=== PATIENT | female | born 1955 | race Caucasian/White ===

== ENCOUNTER 2019-03-29 09:18 | Emergency (ER) | payer SELFPAY ==
[~2019-03-29] VITALS: Ht 167.7 cm; Wt 65.9 kg
--- NOTE | 2019-03-29 09:35 | ED General ---
General Stated Complaint: LT KNEE INJ History of Present Illness Date Seen by Provider: Mar 29, 2019 Time Seen by Provider: 09:31 Initial Comments Patient is a 63-year-old female who comes to the emergency department today after a knee injury. Patient states she fell last evening landing straight on the front of her left knee. Since then, she has been able to bear weight but has had worsening pain and swelling in that area. No other injuries. No other complaints today. Allergies and Home Medications Allergies Coded Allergies: ibuprofen (Verified Allergy, Unknown, hives, 03/29/19) hives Patient Home Medication List Home Medication List Reviewed: Yes Review of Systems Review of Systems Constitutional: no symptoms reported EENTM: see HPI Respiratory: no symptoms reported Cardiovascular: no symptoms reported Musculoskeletal: see HPI Skin: no symptoms reported All Other Systems Reviewed Negative Unless Noted: Yes Past Qhpdqwh-Nxylrr-Fzkrui Hx Patient Social History Recent Foreign Travel: No Physical Exam Vital Signs Vital Signs - First Documented Capillary Refill : Height, Weight, BMI Height: '" Weight: lbs. oz. kg; BMI Method: General Appearance: No Apparent Distress, WD/WN HEENT: TMs Normal Respiratory: Lungs Clear Cardiovascular: No Edema, No Murmur Extremity: Normal Capillary Refill, Other (large effusion over left knee. No ligamentous laxity with testing of AC/PC legaments, MCL/LCL intact) Neurologic/Psychiatric: Alert, Oriented x3 Skin: Normal Color Progress/Results/Core Measures Suspected Sepsis SIRS Temperature: Pulse: Respiratory Rate: Blood Pressure / Mean: Results/Orders My Orders Orders - ASHLEY MUNOZ DO Knee 3 View Left (03/29/19 09:35) Knee Immobilizer (03/29/19 10:21) Crutches (03/29/19 10:21) Vital Signs/I&O 03/29/19 03/29/19 09:28 09:28 Temp 36.8 36.8 Pulse 109 109 Resp 20 20 B/P (MAP) 146/69 (94) 146/69 (94) Pulse Ox 98 98 O2 Delivery Room Air Room Air Capillary Refill : Progress Note : Time: 09:35 Progress Note Patient is seen and examined. XR of the left knee ordered. 10:25: X-ray results are reviewed. I discussed this patient with the orthopedist on-call, Dr. Ramirez. Recommended a knee immobilizer and follow-up in his office. Patient is provided a knee immobilizer and crutches. She is offered pain medication but declines that she wants meds because she feels she is very sensitive to pain medication. Discharged to home. All her questions are answered prior to discharge home. Departure Impression Primary Impression: Fracture, patella Disposition: HOME, SELF-CARE Condition: Stable Departure-Patient Inst. Referrals: NO,LOCAL PHYSICIAN (PCP/Family) Primary Care Physician ASHLEY MUNOZ DO Mar 29, 2019 09:35 POS
--- NOTE | 2019-03-29 10:08 | Diagnostic Imaging Report ---
Clinical indications: Patient fell on left knee. Exam: X-ray of the left knee, 3 views. Comparison: None. Findings: There is a comminuted, predominantly horizontally oriented fracture involving the patella which is nondisplaced. There is a left knee effusion and swelling in the left knee region. There is no other fracture or dislocation seen. There is chronic calcification seen posterior to the knee and loose bodies may be considered. There are small spurs involving the medial, lateral, and patellofemoral compartments. Impression: 1: There is a nondisplaced, predominantly horizontally oriented, comminuted fracture involving the patella. There is knee effusion and left knee swelling. 2: Possible chronic-appearing loose body seen posteriorly. Dictated by: Dictated on workstation # [id number]
[2019-03-29] MEDS ORDERED: ONDANSETRON 4 MG (ZOFRAN) ORAL DISSOLVE TAB PO STA (10:35)
[2019-03-29] MEDS ORDERED: ACETAMINOPHEN 500 MG TAB (TYLENOL) PO ONE (10:45)
[2019-03-29] MEDS ORDERED: ACET-789 PO (10:45)
[2019-03-29] MEDS ORDERED: ONDA4TAB11 PO (10:45)
[2019-03-29 11:03] VITALS: BP 137/65
== END 2019-03-29 11:03 | disposition home or self-care (01) ==
LOC: ER FS 09:20
DX: S82.002A Unspecified fracture of left patella, initial encounter for closed fracture (principal); Z88.6 Allergy status to analgesic agent; W19.XXXA Unspecified fall, initial encounter
CPT/HCPCS: 73562

== ENCOUNTER → 2019-04-23 | Outpatient (CLI) | payer SELFPAY ==
[~2019-04-23] MED LIST: ACET-789 PO; ONDA4TAB11 PO
--- NOTE | 2019-04-23 14:12 | Diagnostic Imaging Report ---
INDICATION: Left knee fracture, follow-up. TIME OF EXAM: 1:55 PM COMPARISON: Correlation is made with prior radiographs from 03/29/2019. FINDINGS: Fracture lines involving the patella remain visible although are somewhat blurred consistent with some healing. Alignment is anatomic. The joint effusion has decreased since prior study. Calcifications along the posterior aspect of the knee are again noted and similar to prior exam. IMPRESSION: Healing patellar fracture. Alignment is anatomic. Fracture lines do remain partly visible. Dictated by: Dictated on workstation # [id number]
== END ==
LOC: RAD FS 13:51
PROVIDERS: ATTEND Nurse Practitioner Family
DX: S82.002D Unspecified fracture of left patella, subsequent encounter for closed fracture with routine healing (principal)
CPT/HCPCS: 73562

== ENCOUNTER → 2019-05-10 | Outpatient (CLI) | payer SELFPAY ==
--- NOTE | 2019-05-10 09:51 | Diagnostic Imaging Report ---
EXAMINATION: Left knee at 9:04 a.m. INDICATION: Follow-up fracture patella. Four views were obtained. The previous exam of 04/23/2019 noted a healing complex essentially nondisplaced fracture of the patella. On the lateral view of the study, the fracture lines are again evident. The main fracture fragments remain nondisplaced. There is minimal if any new healing callus formation present. The overall appearance of the knee joint is otherwise stable. The calcifications along the posterior aspect of the knee joint seen previously are again evident and no different. The knee joint effusion seen on the prior exam may be somewhat less. IMPRESSION: 1. There is a healing complex essentially nondisplaced fracture of the patella. When compared to the prior study there has been no adverse change. 2. The joint effusion seen previously may be somewhat less than on the prior exam. Dictated by: Dictated on workstation # [id number]
== END ==
LOC: RAD FS 08:56
PROVIDERS: ATTEND Nurse Practitioner
DX: S82.045D Nondisplaced comminuted fracture of left patella, subsequent encounter for closed fracture with routine healing (principal)
CPT/HCPCS: 73562

== ENCOUNTER → 2019-05-31 | Outpatient (CLI) | payer SELFPAY ==
--- NOTE | 2019-05-31 09:41 | Diagnostic Imaging Report ---
EXAMINATION: Left knee at 9:14 a.m. INDICATION: Fracture of the patella. Three views were obtained. The prior exam of 05/10/2019 noted a healing complex essentially a nondisplaced fracture of the patella. On this exam, the fracture lines are still evident although perhaps somewhat less conspicuous. There does not appear to be any significant healing callus formation since the prior exam. No other fracture or acute bony abnormality is noted. The overall appearance of the knee joint itself is stable. Calcifications are again seen along the posterior aspect of the knee joint. These could be intra-articular. A small joint effusion seen on the prior exam may have diminished somewhat. IMPRESSION: There is a stable healing fracture of the patella. There is no acute bony abnormality noted. Dictated by: Dictated on workstation # [id number]
== END ==
LOC: RAD FS 09:06
PROVIDERS: ATTEND Nurse Practitioner
DX: S82.045D Nondisplaced comminuted fracture of left patella, subsequent encounter for closed fracture with routine healing (principal)
CPT/HCPCS: 73562